=== PATIENT | male | born 1970 | race Caucasian/White ===

== ENCOUNTER 2019-09-20 22:10 | Emergency (ER) | payer OTHER ==
[~2019-09-20] VITALS: Ht 190.5 cm; Wt 100.2 kg
[2019-09-20] MEDS ORDERED: ketorolac trometh. 30mg/ml inj. IV ONE (23:00)
[2019-09-20] MEDS ORDERED: ondansetron/PF 4mg/2ml inj IV ONE (23:00)
[2019-09-20] MEDS ORDERED: propofol 10mg/ml 20ml vial IV ONE (23:00)
[2019-09-20] MEDS ORDERED: morphine 4 MG/ML inj SYRINge IV ONE (23:00)
--- NOTE | 2019-09-21 02:26 | NUR ---
X-ray at bedside to verify results of closed reduction procedure.
[2019-09-21 02:51] VITALS: BP 124/97
== END 2019-09-21 02:53 | disposition home or self-care (01) ==
LOC: ER 22:11
DX: S43.084A Other dislocation of right shoulder joint, initial encounter (principal); M25.511 Pain in right shoulder; R50.9 Fever, unspecified; X58.XXXA Exposure to other specified factors, initial encounter; Y93.89 Activity, other specified; Y92.89 Other specified places as the place of occurrence of the external cause; Y99.8 Other external cause status
CPT/HCPCS: 23650; 73020; 73030; 93005; 96374; 96375; 99152; 99285; J1885; J2270; J2405; J2704